=== PATIENT | female | born 1990 | race African-American/Black ===

== ENCOUNTER 2024-10-02 09:19 | Day surgery (SDC) | payer BC ==
[~2024-10-02] VITALS: Ht 172.7 cm; Wt 117.9 kg
[~2024-10-02 09:19] MED LIST: ASPI1TAB20 PO; CEPH500C PO; DexAMETHasone SOD PHOS 10MG/1ML VIAL INJ ONE; GLYCOPYRROLATE 0.2 MG/ML 1ML VIAL ONE; HYDR-4902 PO; HYDR1TAB97 PO; HYDROmorphone HCL 2 MG/ML VL/or syr ONE; KETAMINE 50mg/ML 1ml syringe ONE; KETOROLAC TROMETH 30 MG/ML 1ML VIAL ONE; LIDOCAINE 2% (LOCAL ANESTH.) PF 5ml SDV ONE; MIDAZOLAM HCL 2MG/2ML 2ml VIAL (1mg/ml) ONE; ONDANSETRON HCL 4 MG/2 ML VIAL ONE; PROPOFOL 10 MG/ML 20 ML IV ONE; ROPIVACAINE 0.5% (5MG/ML) 20ML AMPULE IJ ONE
--- NOTE | 2024-10-02 10:21 | DVHINCON2 ---
Consult Note Consult Consult Note S: Subjective Chief Complaint: Chronic right knee pain and instability. History of Present Illness: The patient presents with a long-standing history of right knee pain and i nstability. Symptoms began following a basketball-related injury at age 13. She underwent a right knee arthroscopy at [facility] in 2011, initially improving. In 2019, she experienced a patellar dislocation after falling down the stairs, managed conservatively with bracing and physical therapy. Despite this, she had recurrent instability. In 2022, she underwent another arthroscopic procedure, cortisone injection, and a full course of PT, all of which failed to resolve her symptoms. She now complains of persistent sharp knee pain and instability that began immediately after the second surgery and has persisted since. Location: Right knee Quality: Sharp Severity: Moderate to severe Duration: Chronic Timing: Constant, worsened since last surgery in 2022 Context: Post-surgical, following failed conservative care Modifying Factors: Bracing, PT, and injections failed Associated Symptoms: Instability, sharp pain with activity --- O: Objective General: Well-nourished, well-developed female in no acute distress. Ambulating with mild antalgic gait. Inspection: Mild peripatellar swelling No obvious deformity Well-healed arthroscopic scars Palpation: Tenderness over medial and lateral joint lines Tenderness over the patellofemoral joint No warmth or erythema Range of Motion (ROM): Flexion: 0120 with discomfort beyond 90 Extension: Full Stability Tests: Antonia: Negative Anterior drawer: Negative Varus/Valgus stress: Stable Patellar glide: Increased lateral translation Patellar apprehension test: Positive Pivot shift: Negative Strength Testing (Right lower extremity): Quadriceps: 4/5 Hamstrings: 5/5 Hip flexors and abductors: 5/5 No gross atrophy noted Gait: Mild antalgic gait noted No assistive device used Neurovascular: Sensation intact to light touch over dermatomes Dorsalis pedis and posterior tibial pulses 2+ bilaterally Capillary refill <2 seconds Imaging Reviewed: Previous right knee MRI and X-rays confirm patellar maltracking and soft tissue derangement Preoperative labs and imaging reviewed and appropriate --- A: Assessment Diagnosis: Chronic right patellar instability, status post multiple arthroscopic interventions Suspected medial patellofemoral ligament (MPFL) insufficiency Suspected lateral patellar tethering Persistent patellofemoral chondropathy and/or meniscal pathology ICD-10: M22.31 Recurrent dislocation of patella, right knee M17.11 Unilateral primary osteoarthritis, right knee --- P: Plan Surgical Intervention: Right knee arthroscopy Open MPFL reconstruction using allograft Possible lateral patellar ligament release/repair Possible meniscal repair (depending on intraoperative findings) Discussion: Surgical options, risks, benefits, and outcomes explained in detail. Patient understands and consents to surgical intervention. Completed preoperative labs, imaging, and clearance. Will proceed with surgery as scheduled. Post-op planning: Arrange postop physical therapy Brace and weight-bearing protocol to be followed Pain management plan to be implemented post-op Plan discussed with: Patient Visit Coding Surgery Date of Service if different f: October 02, 2024 Billing Provider: CURT BASS Surgery Visit Codes: [id number] - INP CONSULT <40 MIN CURT BASS October 02, 2024 10:21
[2024-10-02] MEDS ORDERED: FAMOTIDINE (10MG/ML) 2ML VL IV ONE ×2 (10:40→10:55)
[2024-10-02] MEDS: ceFAZolin 2 GM/D5W50ml 50 ML IV ONE (11:05)
[2024-10-02] MEDS ORDERED: fentaNYL CITRATE 100 MCG/2 ML VL ONE (11:10)
[2024-10-02] MEDS ORDERED: ePHEDrine SULFATE 50 MG/ML AMP ONE (11:11)
[2024-10-02] MEDS ORDERED: HYDROmorphone HCL 2 MG/ML VL/or syr ONE (11:43)
[2024-10-02] MEDS ORDERED: POVIDONE IODINE 10 % TOPICAL OINT 30GM TOP ONE (11:57)
[2024-10-02] MEDS ORDERED: BACITRACIN TOP OINT 1 UD PKG TOP ONE (11:59)
[2024-10-02] MEDS ORDERED: ACETAMINOPHEN IV 100 ML IV ONE (12:30)
[2024-10-02 13:39] VITALS: O2SAT 100
[2024-10-02] MEDS ORDERED: HYDROmorphone HCL 2 MG/ML VL/or syr IV PRN (13:45)
[2024-10-02 13:49] VITALS: TEMP 97.3
--- NOTE | 2024-10-02 14:25 | DVH ---
FLUOROSCOPY TIME: 0.4 minute TECHNIQUE: Intraoperative radiographs of the right knee were obtained. COMPARISON: None FINDINGS: Refer to intraoperative report for further evaluation. IMPRESSION: Refer to intraoperative report for further evaluation.
[2024-10-02] MEDS ORDERED: ONDANSETRON HCL 4 MG/2 ML VIAL ONE (14:48)
[2024-10-02 14:50] VITALS: BP 121/87; PULSE 71; RESP 12; O2SAT 97
[2024-10-02] MEDS: ONDANSETRON HCL 4 MG/2 ML VIAL IV ONE (14:50)
--- NOTE | 2024-10-02 15:54 | DVHOP2 ---
Operative Report - 2 Report Details Date: 10/02/24 Preop Diagnosis: Right knee patellar instability with medial meniscus tear Postop Diagnosis: Right knee patellar instability with complex medial meniscus tear, lateral meniscus tear, lateral tibial plateau chondromalacia grade 3 Surgeon: Regine Mclaughlin MD Cash Reconciliation Specialist: Irlanda Rene, Physician Cash Reconciliation Specialist Anesthesiologist: Dr. Haines Anesthesia: General, Regional Implant: Arthrex FiberTak x2, interference screw 8 x 20 mm, tibialis anterior allograft, fiber stitch x2 Consent: The patient was informed of the risks and benefits of the procedure. These include but are not limited to complications of anesthesia, postoperative infection, incomplete relief of symptoms, recurrence of symptoms, damage to blood vessels, nerves and tendons, deep venous thrombosis, pulmonary embolism and possible need for repeat surgery in the future. Complications: None Estimated Blood Loss: Less than 5 mL Indications for Surgery: The patient is a 34-year-old female who presented to the clinic with a history of right knee pain and instability. Clinical and radiological evaluation demonstrated previous scars. Significant lateral laxity of the patella was noted. Some medial laxity was also noted. MRI did show completely torn medial patellofemoral ligament. Significant lateral ligament gapping was noted status post lateral release. Chondromalacia was also noted. Medial meniscus complex tear was noted. Nonoperative and operative management options were discussed. Given the significant disability she had, history of two prior surgeries, open medial patellofemoral ligament reconstruction for patellar instability was discussed. Pros and cons were discussed. Benefits, risks and treatment alternatives were discussed. Specific complications of the surgery such as neurovascular injury, infection, arthrofibrosis, loss of limb or life were discussed. Guarded prognosis because of the history of prior surgeries and her obesity and chondromalacia was discussed with her. She did have significant genu valgus. Distal femoral osteotomy was also considered and discussed with her. Name of Procedure Performed Right knee arthroscopy, medial meniscus repair, open medial patellofemoral ligament reconstruction, lateral partial meniscectomy, chondroplasty of the lateral tibial plateau Procedure Details Procedure Details: The patient was identified in the preoperative holding area and the surgical site was marked. The consent was verified. The patient was brought into the operating room and placed supine on the operating table. General anesthesia was administered. A tourniquet was applied over the proximal thigh. All the bony prominences were appropriately padded. The knee was positioned appropriately. The extremity was now prepped and draped in the usual sterile manner. A timeout was called out to confirm the identity of the patient, the nature of surgery, the site of surgery, the availability of implants and x-rays and allergies to medications. The knee was examined under anesthesia and was found to have significant recurvatum, genu valgus, generalized laxity, 3+ quadrant laxity laterally and 1+ quadrant laxity medially of the patella. Previous scars were noted. A standard anterolateral portal was established. A 30 degree scope was inserted. A standard anteromedial portal was established, a probe was inserted and the findings are as follows 1. Complex medial meniscus tear 2. Intact ACL and PCL 3. Intact medial compartment cartilage 4. Fraying tear of the central lateral meniscus 5. Laterally subluxed patella with chondromalacia The medial meniscus tear was probed. This was unstable. This was in the white- white zone. This was approximately 16 mm in length. I decided to repair this with an all-inside technique. A fiber Stitch device was used as per manufacture's guidelines. Two anchors were inserted. Excellent fixation of the medial meniscus was noted. The lateral meniscus had significant fraying and tears on the inner portion, white-white zone. A partial lateral meniscectomy was performed. Chondroplasty of the lateral tibial plateau was performed as well. Significant fraying and fibrillation of the cartilage was noted. After this, I proceeded with the open part of the procedure Open medial patellofemoral ligament reconstruction: The tibialis anterior allograft was opened on the back table and prepared. Both the ends were whipstitched. It was placed on the Graftmaster with 10 pounds of tension. A small incision was made over the medial aspect of the patella over the previous scar. The skin and the subcutaneous tissue were dissected. The deep fascia was incised. The medial retinaculum was incised. The medial border of the patella was exposed. A rongeur was used to remove the scar tissue and debride the medial border. Previous sutures were removed. An all suture anchor was used. Two of these anchors were used for excellent fixation. Next, the graft was brought into the operative field and the midportion of the graft was secured to the medial border of the patella. Next, the medial epicondyle was exposed. For this an incision was made over it. The skin and the subcutaneous tissue were dissected. The deep fascia was incised and the medial epicondyle exposed. Hemostasis was achieved. A guidepin was inserted at the anatomical center of the attachment of the medial rodriguez llofemoral ligament. Radiographic markers were used. A eight mm reamer was now used to drill through the cortex up to the opposite cortex but not through it. The guidepin was used to shuttle a looped suture. Deep tissue dissection was carried out between the second and third layer to the medial epicondyle. The tail ends of the graft were now passed between these layers and through the loop into the femoral tunnel. The knee was kept at 30 degrees of flexion and adequate tension was applied to ensure that there is 1 quadrant laxity but not too lax or too tight. The femoral end of the graft was now fixed with an interference screw. Excellent fixation was noted. Good range of motion of the knee was noted without overtightening of the graft. Good isometry was noted. Although there was some medial instability, repair of the lateral retinaculum was not considered necessary as a movement was not physiological with knee flexion. The medial retinaculum was closed with nonabsorbable sutures. The sutures from the suture anchors were used to advance the vastus medialis obliquus. Repair of the medial ligament was thus performed. The deep tissue was closed with Vicryl, the skin was closed with Monocryl. A sterile dressing was applied. The knee was placed in hinged range of motion brace set at -10 to 30 degrees Disposition: Good, the patient was extubated and taken to the recovery without any complications Plan: The patient may partial weight-bear. Range of motion as tolerated per brace settings Condition Good Disposition Home REGINE MCLAUGHLIN MD October 02, 2024 15:54
== END 2024-10-02 14:55 | disposition home or self-care (01) ==
LOC: SUR 09:19
PROVIDERS: ATTEND Orthopaedic Surgery Sports Medicine
DX: M23.51 Chronic instability of knee, right knee (principal); M22.3X1 Other derangements of patella, right knee; M22.41 Chondromalacia patellae, right knee; S83.231A Complex tear of medial meniscus, current injury, right knee, initial encounter; S83.281A Other tear of lateral meniscus, current injury, right knee, initial encounter; M25.261 Flail joint, right knee; E66.9 Obesity, unspecified; Z79.899 Other long term (current) drug therapy; Z98.890 Other specified postprocedural states; X58.XXXA Exposure to other specified factors, initial encounter; Y93.89 Activity, other specified; Y92.89 Other specified places as the place of occurrence of the external cause; Y99.8 Other external cause status
CPT/HCPCS: 27566; 29881; 29882; 73560; C1713; C1768; J0690; J1100; J1171; J1885; J2003; J2250; J2405; J2704; J2795; J3010; J3490; 76000; J0131